=== PATIENT | male | born 1965 | race Caucasian/White ===

== ENCOUNTER 2016-11-16 12:17 | Emergency (ER) | payer MEDICAID ==
[2011-01-13 14:43] VITALS: BMI 32.2
== END 2016-11-16 15:07 | disposition home or self-care (01) ==
LOC: D.ER 12:17
DX: S89.91XA Unspecified injury of right lower leg, initial encounter (principal); W19.XXXA Unspecified fall, initial encounter; Y93.89 Activity, other specified; Y92.89 Other specified places as the place of occurrence of the external cause; S39.93XA Unspecified injury of pelvis, initial encounter

== ENCOUNTER 2018-02-18 15:59 | Emergency (ER) | payer MEDICAID ==
[2011-01-13 14:43] VITALS: Ht 170.2 cm; Wt 86.4 kg
[~2018-02-18] VITALS: Ht 170.2 cm; Wt 86.4 kg
[2018-02-18 18:30] VITALS: BP 131/73
== END 2018-02-18 18:30 | disposition home or self-care (01) ==
LOC: D.ER 15:59
DX: M25.551 Pain in right hip (principal); G40.909 Epilepsy, unspecified, not intractable, without status epilepticus